=== PATIENT | female | born 1970 | race Caucasian/White ===

== ENCOUNTER 2016-05-25 10:50 | Emergency (ER) | payer OTHER ==
[~2016-05-25] VITALS: Ht 165.1 cm; Wt 77.6 kg
[~2016-05-25 10:50] MED LIST: CYCLOBENZAPRINE5 M2 PO; FLEXERIL10 MG PO; GEMFIBROZIL600 M1 PO; IBU800 MG PO; IBUPROFEN800 M1 PO
[2016-05-25] MEDS ORDERED: IBUPROFEN600 M1 PO (11:40)
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
--- NOTE | 2016-05-25 12:52 | CT SCAN REPORT ---
EXAMINATION: CT LUMBAR SPINE WITHOUT CONTRAST CLINICAL INFORMATION: Low back pain. COMPARISON: None. TECHNIQUE: Helical non-contrast CT images were obtained through the lumbar spine and 1.25 and 2.5 mm axial reconstructions were reviewed along with sagittal and coronal MPRs. DLP: 697 mGy-cm. FINDINGS: There are 5 nonrib-bearing lumbar type vertebral bodies. Vertebral body height is maintained. Sagittal alignment is maintained. No spondylolysis or scoliosis. Intervertebral disc height is maintained. The aorta is normal in caliber. There is a retroaortic left renal vein incidentally. No adenopathy. The imaged SI joints demonstrate minor bilateral vacuum phenomenon. SPINAL LEVELS: T12-L1 and L1-L2, L2-L3: Normal disc morphology no canal or foraminal stenosis. L3-L4: Disc bulge and mild facet hypertrophy. Mild canal and mild bilateral foraminal stenosis. L4-L5: There is disc bulge, facet hypertrophy, and thickening of the ligamentum flavum. Mild canal stenosis. Mild to moderate bilateral foraminal stenosis appearing to contact the exiting L4 nerve roots. L5-S1: Minor disc bulge minimally flattening the ventral thecal sac. The foramina appear mildly narrowed. IMPRESSION: Spondylosis most notable at L4-L5 where there is multifactorial mild canal and mild to moderate bilateral foraminal stenosis, appearing to contact the exiting L4 nerve roots. No compression deformity.
[2016-05-25] MEDS ORDERED: NAPROSYN500 M1 PO (13:00)
[2016-05-25] MEDS ORDERED: CYCLOBENZAPRINE10 M1 PO (13:01)
[2016-05-25 13:08] VITALS: BP 152/62
== END 2016-05-25 13:11 ==
LOC: ERH 10:50
DX: M51.26 Other intervertebral disc displacement, lumbar region (principal)
CPT/HCPCS: 81025